=== PATIENT | female | born 1970 | race Two or more races ===

== ENCOUNTER → 2020-12-26 | Outpatient (CLI) | payer OTHER ==
--- NOTE | 2020-12-26 17:03 | RAD ---
PA and lateral chest. HISTORY: Cough PA and lateral views were taken of the chest. There are mild bilateral areas of infiltrate. Atypical pneumonia or Covid-19 pneumonia could have this pattern. There is no effusion. The heart is normal in size. Patient's taken a poor inspiration. IMPRESSION: 1. Mild bilateral infiltrates. Electronically signed by: Wenceslao Vallecillo MD (12/26/2020 5:00 PM) [facility]
== END ==
LOC: RAD 16:31
PROVIDERS: ATTEND Nurse Practitioner Family
DX: R91.8 Other nonspecific abnormal finding of lung field (principal)
CPT/HCPCS: 71046